=== PATIENT | female | born 1965 | race Hispanic/Latino ===

== ENCOUNTER 2018-04-23 17:39 | Emergency (ER) | payer SELFPAY ==
[~2018-04-23] VITALS: Ht 147.3 cm; Wt 72.0 kg
[2018-04-23] MEDS ORDERED: ZOFRAN4 MG/TAB PO (20:38)
[2018-04-23] MEDS ORDERED: CRIXIVAN400 MG PO (20:38)
[2018-04-23] MEDS ORDERED: COMBIVIR 1501 COMBO PO (20:38)
[2018-04-23] MEDS ORDERED: GLIPIZIDE5 MG PO (20:43)
[2018-04-23 20:51] VITALS: BP 140/80
== END 2018-04-23 20:51 | disposition home or self-care (01) | DRG 923 ==
LOC: ED 17:39
DX: T74.21XA Adult sexual abuse, confirmed, initial encounter (principal); S30.814A Abrasion of vagina and vulva, initial encounter; E11.9 Type 2 diabetes mellitus without complications; Y07.59 Other non-family member, perpetrator of maltreatment and neglect

== ENCOUNTER 2018-09-28 14:39 | Emergency (ER) | payer OTHER ==
[~2018-09-28] VITALS: Ht 147.3 cm; Wt 70.0 kg
[~2018-09-28 14:39] MED LIST: COMBIVIR 1501 COMBO PO; CRIXIVAN400 MG PO; GLIPIZIDE5 MG PO; ZOFRAN4 MG/TAB PO
[2018-09-28 15:49] LABS: IMMATURE GRANULOCYTES 0.2 % (0.0-5.0); MEAN CORPUSCULAR HGB CONC 35.7 g/L CALC (32.0-36.0); NEUT# 1.58 thou/uL (2.00-7.15); RED BLOOD COUNT 4.93 mill/uL (4.20-5.60); RED CELL DISTRI WIDTH 12.7 % (11.5-15.5)
[2018-09-28 15:51] LABS: HEMATOCRIT 42.9 % (37.0-47.0); HEMOGLOBIN 15.3 g/dl (12.0-16.0)
[2018-09-28 16:06] LABS: URINE BILIRUBIN - DIPSTICK NEGATIVE (NEGATIVE); URINE BLOOD DIPSTICK NEGATIVE (NEGATIVE); URINE COLOR YELLOW; URINE GLUCOSE - DIPSTICK >=1000 mg/dL (NEGATIVE); URINE KETONE 15 mg/dL (NEGATIVE); URINE LEUK ESTERASE NEGATIVE (NEGATIVE); URINE NITRITE - DIPSTICK NEGATIVE (Negative); URINE PH 5.5 (4.5-8.0); URINE PROTEIN - DIPSTICK NEGATIVE (NEG-TRACE); URINE SPECIFIC GRAVITY <=1.005; URINE UROBILINOGEN - DIPSTICK 0.2 E.U./dL (0.2)
[2018-09-28 16:06] LABS: ALBUMIN 4.3 g/dL (3.2-5.0); ALKALINE PHOSPHATASE 144 u/l (38-126); ANION GAP 14 (6-22 (CALC)); BILIRUBIN, TOTAL 0.6 mg/dL (0.0-1.4); BUN 10 mg/dL (7-17); BUN/CREATININE RATIO 22 (12-20 (CALC)); CHLORIDE 102 mmol/l (95-108); CREATININE 0.4 mg/dL (0.5-1.0); GFR > 60 ML/MIN (>=60 (CALC)); GFR FOR AFR.AMER. > 60 ML/MIN (>=60 (CALC)); LIPASE 123 u/l (23-300); POTASSIUM 3.8 mmol/l (3.5-5.1); SGOT/AST 22 u/l (14-36); SODIUM 135 mmol/l (137-146); TOTAL PROTEIN 7.5 g/dL (6.3-8.2)
[2018-09-28 16:14] LABS: CARBON DIOXIDE 23 mmol/l (22-30)
[2018-09-28 16:17] LABS: MYOGLOBIN 20 ng/mL (0 - 62)
[2018-09-28 16:58] VITALS: BP 144/85
== END 2018-09-28 17:41 | disposition home or self-care (01) | DRG 639 ==
LOC: ED 14:39
PROVIDERS: Emergency Medicine
DX: E11.65 Type 2 diabetes mellitus with hyperglycemia (principal)

== ENCOUNTER 2020-01-31 10:56 | Emergency (ER) | payer OTHER ==
[~2020-01-31] VITALS: Ht 147.3 cm; Wt 56.0 kg
[2020-01-31 11:43] LABS: URINE BILIRUBIN - DIPSTICK NEGATIVE (NEGATIVE); URINE BLOOD DIPSTICK NEGATIVE (NEGATIVE); URINE COLOR YELLOW; URINE GLUCOSE - DIPSTICK >=1000 mg/dL (NEGATIVE); URINE KETONE TRACE mg/dL (NEGATIVE); URINE LEUK ESTERASE NEGATIVE (NEGATIVE); URINE NITRITE - DIPSTICK NEGATIVE (Negative); URINE PROTEIN - DIPSTICK NEGATIVE (NEG-TRACE); URINE UROBILINOGEN - DIPSTICK 0.2 E.U./dL (0.2)
[2020-01-31 12:02] LABS: ALBUMIN 4.4 g/dL (3.2-5.0); ALKALINE PHOSPHATASE 189 u/l (38-126); ANION GAP 11 (6-22 (CALC)); BILIRUBIN, TOTAL 0.6 mg/dL (0.0-1.4); BUN 15 mg/dL (7-17); BUN/CREATININE RATIO 34 (12-20 (CALC)); CARBON DIOXIDE 25 mmol/l (22-30); CHLORIDE 98 mmol/l (95-108); CREATININE 0.4 mg/dL (0.5-1.0); GFR > 60 ML/MIN (>=60 (CALC)); GFR FOR AFR.AMER. > 60 ML/MIN (>=60 (CALC)); POTASSIUM 3.5 mmol/l (3.5-5.1); SGOT/AST 20 u/l (14-36); SODIUM 130 mmol/l (137-146); TOTAL PROTEIN 7.9 g/dL (6.3-8.2)
[2020-01-31 12:14] LABS: MYOGLOBIN 17 ng/mL (0 - 62)
[2020-01-31 12:32] LABS: HEMOGLOBIN 14.6 g/dl (12.0-16.0); IMMATURE GRANULOCYTES 0.2 % (0.0-5.0); MEAN CELL VOLUME 87.5 fL CALC (80.0-100.0); MEAN CORPUSCULAR HGB 30.4 pG CALC (26.0-32.0); MEAN CORPUSCULAR HGB CONC 34.8 g/dL CAL (32.0-36.0); NEUT# 2.49 thou/uL (2.00-7.15); RED BLOOD COUNT 4.8 mill/uL (4.20-5.60); RED CELL DISTRI WIDTH 11.9 % (11.5-15.5)
[2020-01-31 13:46] VITALS: BP 112/68
== END 2020-01-31 13:55 | disposition home or self-care (01) | DRG 639 ==
LOC: ED 10:56
PROVIDERS: Emergency Medicine
DX: E11.65 Type 2 diabetes mellitus with hyperglycemia (principal); Z79.84 Long term (current) use of oral hypoglycemic drugs